=== PATIENT | female | born 1970 | race Caucasian/White ===

== ENCOUNTER 2022-11-25 22:34 | Emergency (ER) | payer OTHER ==
[~2022-11-25] VITALS: Ht 172.7 cm; Wt 86.2 kg
[2022-11-25] MEDS ORDERED: SODIUM CHLORIDE 0.9% 1000ML 1,000 ML IV STA (22:39)
[2022-11-25] MEDS ORDERED: MECLIZINE HCL 12.5 MG TAB PO STA (22:39)
[2022-11-25 22:56] LABS: BASOPHILS # (AUTO) 0.1 (0.0-0.1); BASOPHILS % 0.5 % (0.0-1.0); EOSINOPHILS # (AUTO) 0.2 (0.0-0.4); EOSINOPHILS % 1.5 % (0.0-6.0); HEMATOCRIT 44.3 % (34.2-44.1); LYMPHOCYTES # (AUTO) 3.5 (1.0-3.2); LYMPHOCYTES % 34.7 % (18.0-39.1); MEAN CORPUSCULAR HEMOGLOBIN 29.2 pg (28-32); MEAN CORPUSCULAR HGB CONC 31.6 g/dL (31-35); MEAN CORPUSCULAR VOLUME 92.3 fL (81-99); MONOCYTES # (AUTO) 0.9 (0.2-0.8); NEUTROPHILS # (AUTO) 5.4 (2.1-6.9); NEUTROPHILS % 53.6 % (38.7-80.0); PLATELET COUNT 297 x10e3/uL (140-360); RED CELL DISTRIBUTION WIDTH 13.3 % (11.7-14.4)
[2022-11-25 23:14] LABS: ALBUMIN 3.6 g/dL (3.5-5.0); ANION GAP 14.9 mmol/L (8-16); CALCIUM 9.6 mg/dL (8.4-10.2); CREATININE, SERUM 1.46 mg/dL (0.57-1.11); POTASSIUM 3.9 mmol/L (3.5-5.1)
[2022-11-26 00:03] LABS: AMPHETAMINES SCREEN,URINE NEGATIVE (NEGATIVE); BENZODIAZEPINES SCREEN,URINE NEGATIVE (NEGATIVE); PHENCYCLIDINE SCREEN,URINE NEGATIVE (NEGATIVE)
[2022-11-26] MEDS ORDERED: MECLIZINE HCL25 MG PO (00:44)
== END 2022-11-26 01:20 | disposition home or self-care (01) ==
LOC: ER 22:43
DX: R42 Dizziness and giddiness (principal); M54.32 Sciatica, left side; R94.4 Abnormal results of kidney function studies; Z88.6 Allergy status to analgesic agent; Z88.1 Allergy status to other antibiotic agents; Z88.0 Allergy status to penicillin; Z88.2 Allergy status to sulfonamides
CPT/HCPCS: 36415; 70496; 70498; 80053; 80307; 80320; 85025; 93005; 99284; J7030; J8597

== ENCOUNTER 2025-04-13 16:00 | Emergency (ER) | payer OTHER ==
[~2025-04-13] VITALS: Ht 172.7 cm; Wt 93.0 kg
[~2025-04-13 16:00] MED LIST: MECLIZINE HCL25 MG PO
[2025-04-13 16:33] VITALS: TEMP 97.8
[2025-04-13 18:03] LABS: BASOPHILS % 0.6 % (0.0-1.0); EOSINOPHILS % 1.2 % (0.0-6.0); LYMPHOCYTES % 29.9 % (18.0-39.1); MONOCYTES % 8.0 % (4.4-11.3); NEUTROPHILS % 59.9 % (38.7-80.0); RED CELL DISTRIBUTION WIDTH 13.2 % (11.7-14.4)
[2025-04-13 18:32] LABS: EST GLOMERULAR FILTRATION RATE 55.0 ML/MIN (>=60)
[2025-04-13] MEDS: KETOROLAC TROMETHAMINE 30 MG/ML VIAL IV STA (18:48)
[2025-04-13 18:51] VITALS: PULSE 70; RESP 20
[2025-04-13] MEDS ORDERED: MEDROL4 M2 PO (18:53)
[2025-04-13 19:17] VITALS: BP 152/85; PULSE 67; RESP 17; O2SAT 100
== END 2025-04-13 19:10 | disposition home or self-care (01) ==
LOC: ER 17:10
DX: M25.511 Pain in right shoulder (principal); M25.551 Pain in right hip; R42 Dizziness and giddiness; M06.9 Rheumatoid arthritis, unspecified; Z85.41 Personal history of malignant neoplasm of cervix uteri
CPT/HCPCS: 36415; 73020; 73502; 80053; 82550; 84484; 85025; 93005; 99284; J1885